=== PATIENT | female | born 1980 | race Caucasian/White ===

== ENCOUNTER 2020-06-14 11:46 | Outpatient (CLI) | payer OTHER ==
--- NOTE | 2020-06-14 14:22 | RAD ---
RIGHT KNEE 4 VIEWS: Date: 06/14/2020 HISTORY: Injury from a fall last year with pain. FINDINGS: There is evidence for somewhat irregularly shaped posterior interarticular body approximately 0.5 cm in size. Medial compartment osteophytosis. IMPRESSION: 1. No acute fracture or dislocation or significant joint effusion. 2. Posterior interarticular body. 3. Medial compartment osteophytosis. POS: [facility]
--- NOTE | 2020-06-14 14:23 | RAD ---
LEFT HAND 3 VIEWS: Date: 06/14/2020 HISTORY: Pain, palpable finding overlying the volar aspect of the distal metacarpal region. Marker was placed on volar aspect of the hand on the lateral view only. FINDINGS: No fracture, dislocation, or other acute process. IMPRESSION: No significant acute osseous process. Consider follow-up nonemergent MRI to evaluate palpable finding , with and without IV contrast. POS: [facility]
== END 2020-06-14 11:47 | disposition home or self-care (01) ==
LOC: SCSRAD 11:46
PROVIDERS: ATTEND Family Medicine
DX: M25.561 Pain in right knee (principal); M25.542 Pain in joints of left hand; M25.761 Osteophyte, right knee

== ENCOUNTER 2020-07-25 07:02 | Outpatient (CLI) | payer OTHER ==
[2020-07-25 13:32] LABS: BHCG - Serum Negative (NEGATIVE); Pregs Control Background? CLEAR/WHITE (CLR/WHITE); Pregs Control Bar Appear? YES (CONTROL BAR)
[2020-07-26 02:09] LABS: SARS-CoV-2 MS2 Positive; SARS-CoV-2 N Gene Negative; SARS-CoV-2 S Gene Negative; SARS-CoV-2 by NAA Not Detected (NotDetected); SARS-CoV-2 orf1ab Negative
== END 2020-07-25 07:03 | disposition home or self-care (01) ==
LOC: LABBT 07:02
PROVIDERS: ATTEND Orthopaedic Surgery
DX: Z01.812 Encounter for preprocedural laboratory examination (principal); Z20.828 Contact with and (suspected) exposure to other viral communicable diseases; M79.89 Other specified soft tissue disorders
CPT/HCPCS: 84703; 87635; U0003

== ENCOUNTER 2020-07-27 05:49 | Day surgery (SDC) | payer OTHER ==
[2020-07-25 12:28] VITALS: BMI 44.6
--- NOTE | 2020-07-26 13:10 | HP ---
PRESENT ILLNESS: The patient is a 39-year-old female with a 6-month history of a painful mass in the palm of the left hand at the base of her middle finger. She has had no injury. The mass causes difficulty gripping objects. 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 PAST MEDICAL HISTORY: The patient is, otherwise, in good health. She has a history of intermittent asthma and is on no routine medications. ALLERGIES: SHE IS ALLERGIC TO SULFA. FAMILY HISTORY: Otherwise, unremarkable. SOCIAL HISTORY: Otherwise, unremarkable. REVIEW OF SYSTEMS: Otherwise, unremarkable. PHYSICAL EXAMINATION: GENERAL: Reveals a healthy female. HEENT: Unremarkable. NECK: Supple. CHEST: Clear. HEART: Regular rate and rhythm. ABDOMEN: Soft and nontender. PELVIS: Deferred. BREASTS: Deferred. EXTREMITIES: Pertinent findings related to the left hand. There is a 5 x 5 mm tender mass at the A1 denton of the middle finger and left palm. It appears to be associated with the flexor tendon. There is no triggering. There is full range of motion in all tendons. DIAGNOSTIC STUDIES: X-rays of the left hand are normal. IMPRESSION: Soft tissue mass tendency, left middle finger, possible ganglion versus giant cell tumor of tendon sheath. PLAN: Surgical excision. The nature of the surgery, length of recovery, and potential complications such as infection, loss of motion, digital nerve injury, recurrence, need for additional treatment and repeat surgery have been discussed in detail. Job ID: [id number]
[2020-07-27] MEDS ORDERED: Atropine Sulfate 1 mg/1 ml Vial ONE (06:31)
[2020-07-27] MEDS ORDERED: Fentanyl 100 MCG/2 ML VIAL ONE (06:33)
[2020-07-27] MEDS ORDERED: Lidocaine 2% w/Epinephrine 1:200K 20 ML VIAL ONE (06:58)
[2020-07-27] MEDS ORDERED: Bupivacaine PF 0.5% 30 ML VIAL ONE (06:58)
[2020-07-27] MEDS ORDERED: Lidocaine 1% (PF) 30 ML VIAL ONE (07:03)
[2020-07-27] MEDS ORDERED: Labetalol HCl 100 MG/20 ML VIAL ONE (08:43)
--- NOTE | 2020-07-27 08:48 | OP ---
DATE OF PROCEDURE: 07/27/2020 ANESTHESIA: General. PREOPERATIVE DIAGNOSIS: Soft tissue mass flexor tendon sheath, left 3rd finger. POSTOPERATIVE DIAGNOSIS: Soft tissue mass flexor tendon sheath, left 3rd finger. Pathology pending. PROCEDURE PERFORMED: Excision of soft tissue mass, left middle finger. OPERATIVE FINDINGS: There was a nodule slightly bigger than a BB at the proximal edge of the A1 denton of the flexor tendon sheath of the left middle finger. It was firm. I cannot quite tell whether this was a ganglion or could have been a small soft tissue mass such as a giant cell tumor of tendon sheath. It was sent to Pathology. DESCRIPTION OF PROCEDURE: After satisfactory anesthesia was induced in supine position, the patient was prepped and draped in the routine manner. The left arm was elevated and exsanguinated with an Esmarch bandage and the tourniquet inflated to 250 mmHg. A 2 cm transverse incision was made over the A1 denton in the palm over the left 3rd finger, carried down through subcutaneous tissues. Bleeding points were controlled with Bovie cautery. Using sharp and blunt dissection, the mass was identified. The digital neurovascular bundles were retracted and protected throughout the procedure. The mass was excised in its entirety and sent to pathology. I went ahead and released the A1 denton similar to a trigger finger to make sure that there will be no further triggering from scar tissue formation. There appeared to be full range of motion of the tendons without any catching or triggering and there appeared to be complete excision of the mass. The wound was thoroughly irrigated. Metacarpal block was accomplished with 0.5% plain Marcaine 10 mL. The wound was closed with interrupted 3-0 nylon. A sterile bulky compressive dressing was applied and the tourniquet deflated after 15 minutes. The hand promptly pinked up and the patient was awakened, taken to recovery room in stable condition. There were no apparent intraoperative complications. The estimated blood loss was negligible. The patient will be discharged home in satisfactory condition, instructed on ice and elevation, given written wound care instructions. She has tramadol at home for pain. She will be rechecked in my office in approximately two weeks or sooner if there are any problems prior to that time. Job ID: [id number] [facility]
[2020-07-27] MEDS ORDERED: Lidocaine 1% PF 5 ML VIAL ONE (11:34)
[2020-07-27] MEDS ORDERED: Dexamethasone 20 MG/5 ML VIAL ONE (11:34)
[2020-07-27] MEDS ORDERED: PROPOFOL 200 MG/20 ML VIAL ONE (11:34)
[2020-07-27] MEDS ORDERED: Ketorolac Tromethamine 30 MG/ML VIAL ONE (11:34)
[2020-07-27] MEDS ORDERED: Ondansetron PF 4 MG/2 ML Vial ONE (11:34)
[2020-07-27] MEDS ORDERED: Succinylcholine 200 MG/10 ml SYRINGE FS ONE (11:34)
== END 2020-07-27 09:45 | disposition home or self-care (01) ==
LOC: SDC 05:49
PROVIDERS: ATTEND Orthopaedic Surgery
PROC: 0LB80ZZ Excision of Left Hand Tendon, Open Approach (ICD-10-PCS; principal; 2020-07-27)
DX: D21.12 Benign neoplasm of connective and other soft tissue of left upper limb, including shoulder (principal); F17.210 Nicotine dependence, cigarettes, uncomplicated; J45.909 Unspecified asthma, uncomplicated; Z88.2 Allergy status to sulfonamides
CPT/HCPCS: 88304; J0461; J0690; J1100; J1885; J2001; J2405; J2704; J3010; S0020

== ENCOUNTER 2021-10-31 08:38 | Outpatient (CLI) | payer OTHER | END 2021-10-31 08:39 | disposition home or self-care (01) | LOC: BICMAMMO 08:38 | PROVIDERS: ATTEND Obstetrics & Gynecology | DX: Z12.31 Encounter for screening mammogram for malignant neoplasm of breast (principal) | CPT/HCPCS: 77063; 77067 ==